=== PATIENT | male | born 1970 | race African-American/Black ===

== ENCOUNTER 2020-03-27 10:29 | Emergency (ER) | payer OTHER, SELFPAY ==
[2020-03-27] MEDS ORDERED: Acetaminophen 500 MG TAB ONE (10:47)
[2020-03-27] MEDS ORDERED: Sodium Chloride 0.9% 1,000 ML ONE (11:14)
[2020-03-27 11:32] LABS: #Basophils 0.1 thou/uL (0.0-0.2); #Lymphocytes 0.9 thou/uL (1.20-3.40); #Monocytes 0.3 thou/uL (0.11-0.59); #Neutrophils 5.5 thou/uL (1.40-6.50); %Basophils 0.9 % (0.0-1.0); %Eosinophils 0.1 % (0.0-10.0); %Lymphocytes 13.9 % (21.0-51.0); %Monocytes 3.9 % (0.0-10.0); %Neutrophils 81.2 % (42.0-75.0); Hemoglobin 12.2 g/dL (14.0-18.0); Mean Corpuscular HGB CONC 30.2 g/dL (32.0-36.0); Mean Corpuscular Hemoglobin 26.5 pg (27.0-31.0); Mean Corpuscular Volume 87.8 fL (78.0-98.0); Mean Platelet Volume 7.6 fL (7.4-10.4); Platelet Count 266 thou/uL (130-400); RBC Distribution Width 12.5 % (11.5-14.5); Red Blood Cell (RBC) Count 4.61 mill/uL (4.70-6.10); White Blood Cell (WBC) Count 6.7 thou/uL (4.8-10.8)
--- NOTE | 2020-03-27 11:44 | RAD ---
Exam: Chest one view HISTORY:Cough Comparison: None FINDINGS: Cardiac silhouette: Normal Aorta: Atherosclerosis Pulmonary vessels: Normal Costophrenic angles: Clear LUNGS: Diminished lung volumes due to poor hypoventilation. Patchy interstitial opacities predominant ly in the lung bases. Pneumothorax: None Osseous abnormalities: None IMPRESSION: Hypoventilation with decreased lung volumes. Patchy interstitial opacities predominate in lung bases are worrisome for atelectasis, aspiration or pneumonia.
[2020-03-27 11:50] LABS: ALT (SGPT) 482 U/L (8-55); AST (SGOT) 309 U/L (5-34); Albumin 3.9 g/dL (3.5-5.0); Alkaline Phosphatase 39 U/L (40-110); Anion Gap 17 mmol/L (10-20); BUN (Urea Nitrogen) 14 mg/dL (8.9-20.6); Bilirubin, Total 0.8 mg/dL (0.2-1.2); Calc. Creatinine Clearance 0 mL/min (70-130); Calcium 8.9 mg/dL (7.8-10.44); Carbon Dioxide 21 mmol/L (22-29); Chloride 101 mmol/L (98-107); Estimated GFR-MDRD 87; Glucose 136 mg/dL (70-105); Potassium 4.3 mmol/L (3.5-5.1); Protein, Total 7.9 g/dL (6.0-8.3); Sodium 135 mmol/L (136-145)
[2020-03-27] MEDS ORDERED: Azithromycin 250 MG TAB ONE (13:09)
[2020-03-29 11:47] LABS: SARS-CoV-2 MS2 Positive; SARS-CoV-2 N Gene Positive; SARS-CoV-2 S Gene Positive; SARS-CoV-2 by NAA DETECTED (NotDetected); SARS-CoV-2 orf1ab Positive
== END 2020-03-27 13:30 | disposition home or self-care (01) ==
LOC: NAV ERS 10:29
DX: U07.1 COVID-19 (principal); J06.9 Acute upper respiratory infection, unspecified
CPT/HCPCS: 71045; 80053; 83605; 84484; 85025; 87040; 87635; 96360; J7050; U0003

== ENCOUNTER 2020-03-28 12:46 | Emergency (ER) | payer OTHER, SELFPAY ==
--- NOTE | 2020-03-28 13:46 | RAD ---
Exam: Chest one view HISTORY:Shortness of breath Comparison: 03/27/2020 FINDINGS: Cardiac silhouette: Normal Aorta: Unremarkable Pulmonary vessels: Normal Costophrenic angles: Clear LUNGS: Scattered interstitial and alveolar opacities. Persistently diminished lung volumes. Pneumothorax: None Osseous abnormalities: None IMPRESSION: No significant interval change.
[2020-03-28 14:09] LABS: #Lymphocytes 0.9 thou/uL (1.20-3.40); #Monocytes 0.3 thou/uL (0.11-0.59); #Neutrophils 5.5 thou/uL (1.40-6.50); %Basophils 0.5 % (0.0-1.0); %Eosinophils 0.4 % (0.0-10.0); %Lymphocytes 13.8 % (21.0-51.0); %Monocytes 4.5 % (0.0-10.0); %Neutrophils 80.9 % (42.0-75.0); Hemoglobin 11.9 g/dL (14.0-18.0); Mean Corpuscular HGB CONC 31.3 g/dL (32.0-36.0); Mean Corpuscular Hemoglobin 27.2 pg (27.0-31.0); Mean Platelet Volume 8.1 fL (7.4-10.4); Platelet Count 291 thou/uL (130-400); RBC Distribution Width 12.2 % (11.5-14.5); Red Blood Cell (RBC) Count 4.38 mill/uL (4.70-6.10); White Blood Cell (WBC) Count 6.8 thou/uL (4.8-10.8)
[2020-03-28 14:25] LABS: ALT (SGPT) 346 U/L (8-55); AST (SGOT) 144 U/L (5-34); Albumin 3.8 g/dL (3.5-5.0); Alkaline Phosphatase 39 U/L (40-110); Anion Gap 15 mmol/L (10-20); BUN (Urea Nitrogen) 10 mg/dL (8.9-20.6); Bilirubin, Total 0.8 mg/dL (0.2-1.2); Calc. Creatinine Clearance 0 mL/min (70-130); Calcium 9.1 mg/dL (7.8-10.44); Carbon Dioxide 24 mmol/L (22-29); Chloride 102 mmol/L (98-107); Estimated GFR-MDRD Greater than 90; Globulin 4.1 g/dL (2.4-3.5); Glucose 126 mg/dL (70-105); Potassium 4.3 mmol/L (3.5-5.1); Protein, Total 7.9 g/dL (6.0-8.3); Sodium 137 mmol/L (136-145)
[2020-03-28] MEDS ORDERED: Aspirin Chewable 81 MG TAB ONE (14:42)
== END 2020-03-28 15:00 | disposition left against medical advice (07) ==
LOC: NAV ERS 12:46
DX: U07.1 COVID-19 (principal); R79.1 Abnormal coagulation profile; R00.0 Tachycardia, unspecified
CPT/HCPCS: 71045; 80053; 83605; 84484; 85025; 85379; 93005

== ENCOUNTER 2022-09-13 05:43 | Emergency (ER) | payer SELFPAY ==
[2022-09-13] MEDS ORDERED: Lidocaine 1% w/Epinephrine 1:100K 20 ML VIAL ONE (06:13)
[2022-09-13] MEDS ORDERED: Bacitracin 1 PK ONE (07:18)
== END 2022-09-13 08:12 | disposition home or self-care (01) ==
LOC: NAV ERS 05:43
DX: S81.811A Laceration without foreign body, right lower leg, initial encounter (principal); R00.0 Tachycardia, unspecified; E11.9 Type 2 diabetes mellitus without complications; W25.XXXA Contact with sharp glass, initial encounter; Z79.84 Long term (current) use of oral hypoglycemic drugs
CPT/HCPCS: 12032

== ENCOUNTER 2022-09-26 16:36 | Emergency (ER) | payer SELFPAY | END 2022-09-26 17:40 | disposition home or self-care (01) | LOC: NAV ERS 16:36 | DX: S81.811D Laceration without foreign body, right lower leg, subsequent encounter (principal); L03.115 Cellulitis of right lower limb; Z48.02 Encounter for removal of sutures; E11.9 Type 2 diabetes mellitus without complications; I10 Essential (primary) hypertension; Z79.84 Long term (current) use of oral hypoglycemic drugs; Z79.899 Other long term (current) drug therapy; W25.XXXD Contact with sharp glass, subsequent encounter | CPT/HCPCS: 99282 ==